=== PATIENT | female | born 2000 | race Hispanic/Latino ===

== ENCOUNTER 2020-10-04 15:21 | Emergency (ER) | payer OTHER ==
[~2020-10-04] VITALS: Ht 154.9 cm; Wt 55.5 kg
[2020-10-04] MEDS ORDERED: PRENATAL CAPLE1 EACH (16:13)
[2020-10-04] MEDS ORDERED: ACETAMINOPHEN 325 MG TAB PO PRN (16:15)
== END 2020-10-04 18:10 | disposition home or self-care (01) ==
LOC: FSED 15:26
DX: O26.91 Pregnancy related conditions, unspecified, first trimester (principal); V86.55XA Driver of 3- or 4- wheeled all-terrain vehicle (ATV) injured in nontraffic accident, initial encounter; Y92.89 Other specified places as the place of occurrence of the external cause
CPT/HCPCS: 76805; 80048; 80076; 81003; 85379; 85610; 86900; 99283